=== PATIENT | female | born 1995 | race Hispanic/Latino ===

== ENCOUNTER 2019-06-04 08:34 | Outpatient (CLI) | payer MEDICAID | END 2019-06-04 08:35 | disposition home or self-care (01) | LOC: MADLABBHPM 08:34 | PROVIDERS: ATTEND Family Medicine | DX: Z34.83 Encounter for supervision of other normal pregnancy, third trimester (principal) | CPT/HCPCS: 36415; 82951; 82952 ==

== ENCOUNTER 2024-03-12 09:23 | Outpatient (CLI) | payer OTHER | END 2024-03-12 09:24 | disposition home or self-care (01) | LOC: MADRAD 09:23 | PROVIDERS: ATTEND Nurse Practitioner Family | DX: M54.16 Radiculopathy, lumbar region (principal) | CPT/HCPCS: 72100 ==